=== PATIENT | female | born 1935 | race Caucasian/White ===

== ENCOUNTER 2018-03-13 14:20 | Outpatient (CLI) | payer MEDICARE | END 2018-03-13 14:21 | disposition home or self-care (01) | LOC: BICMAMMO 14:20 | PROVIDERS: ATTEND Internal Medicine | DX: Z12.31 Encounter for screening mammogram for malignant neoplasm of breast (principal); Z85.3 Personal history of malignant neoplasm of breast; Z80.3 Family history of malignant neoplasm of breast | CPT/HCPCS: 77063; 77067 ==

== ENCOUNTER 2019-04-11 14:05 | Outpatient (CLI) | payer MEDICARE ==
--- NOTE | 2019-04-11 14:43 | MMO ---
Bilateral MAMMO Bilat Screen [facility]. CLINICAL HISTORY: Patient is 83 years old and is seen for screening. The patient has the following family history of breast cancer: paternal grandmother, malignant (generic). The patient has a history of malignant (generic) in the right breast at age 67. The patient has a history of left Ultrasound Guided Core Biopsy in January, - benign - Fibroadipose tissue and right Lumpectomy in 2002 - malignant. VIEWS: The views performed were: bilateral craniocaudal with tomosynthesis and bilateral mediolateral oblique with tomosynthesis. FILMS COMPARED: The present examination has been compared to prior imaging studies performed at [facility], [place] on 02/19/2015, 02/24/2016, 03/09/2017 and 03/13/2018. This study has been interpreted with the assistance of computer-aided detection. MAMMOGRAM FINDINGS: The breasts are heterogeneously dense, which could obscure a lesion on mammography. Finding 1: There are stable post operative changes seen in the right breast. Finding 2: There are benign appearing calcifications seen in both breasts. There are no suspicious masses, suspicious calcifications, or new areas of architectural distortion. IMPRESSION: THERE IS NO MAMMOGRAPHIC EVIDENCE OF MALIGNANCY. A ROUTINE FOLLOW-UP MAMMOGRAM IN 1 YEAR IS RECOMMENDED. THE RESULTS OF THIS EXAM WERE SENT TO THE PATIENT. ACR BI-RADS Category 2 - Benign finding MAMMOGRAPHY NOTE: 1. A negative mammogram report should not delay a biopsy if a dominant of clinically suspicious mass is present. 2. Approximately 10% to 15% of breast cancers are not detected by mammography. 3. Adenosis and dense breasts may obscure an underlying neoplasm. Reported by: DAHLIA CARTER MD Electonically Signed: [id number]
== END 2019-04-11 14:06 | disposition home or self-care (01) ==
LOC: BICMAMMO 14:05
PROVIDERS: ATTEND Internal Medicine
DX: Z12.31 Encounter for screening mammogram for malignant neoplasm of breast (principal)
CPT/HCPCS: 77063; 77067

== ENCOUNTER 2019-06-18 11:58 | Inpatient (IN) | payer MEDICARE ==
[2019-06-18 12:26] LABS: #Lymphocytes 0.9 thou/uL (1.20-3.40); #Monocytes 0.5 thou/uL (0.11-0.59); #Neutrophils 3.6 thou/uL (1.40-6.50); %Basophils 0.6 % (0.0-1.0); %Eosinophils 0.9 % (0.0-10.0); %Lymphocytes 17.3 % (21.0-51.0); %Neutrophils 72.2 % (42.0-75.0); Hemoglobin 12.9 g/dL (12.0-16.0); Mean Corpuscular Hemoglobin 30.3 pg (27.0-31.0); Mean Corpuscular Volume 94.8 fL (78.0-98.0); Mean Platelet Volume 8.1 fL (7.4-10.4); Platelet Count 151 thou/uL (130-400); RBC Distribution Width 12.3 % (11.5-14.5); Red Blood Cell (RBC) Count 4.24 mill/uL (4.20-5.40)
[2019-06-18 13:07] LABS: ALT (SGPT) 51 U/L (8-55); AST (SGOT) 45 U/L (5-34); Alkaline Phosphatase 111 U/L (40-110); Anion Gap 13 mmol/L (10-20); BUN (Urea Nitrogen) 13 mg/dL (9.8-20.1); Bilirubin, Total 0.6 mg/dL (0.2-1.2); Calc. Creatinine Clearance 0 mL/min (70-130); Calcium 11.2 mg/dL (7.8-10.44); Carbon Dioxide 29 mmol/L (23-31); Chloride 104 mmol/L (98-107); Estimated GFR-MDRD 73; Globulin 2.6 g/dL (2.4-3.5); Glucose 108 mg/dL (83-110); Potassium 4.7 mmol/L (3.5-5.1); Protein, Total 6.6 g/dL (6.0-8.3); Sodium 141 mmol/L (136-145)
[2019-06-18] MEDS ORDERED: Diltiazem 125 MG/25 ML ONE (13:08)
--- NOTE | 2019-06-18 13:09 | RAD ---
PORTABLE CHEST: Date: 06/18/2019 HISTORY: New onset atrial fibrillation. FINDINGS: Heart size is borderline for portable technique. Lungs are clear of any infiltrative process. Interst itial changes of the lung bases are slightly increased which could represent some subsegmental atelec tasis. IMPRESSION: 1. Borderline heart size. 2. Bibasilar interstitial lung change, probably related to atelectasis. POS: [facility]
[2019-06-18] MEDS ORDERED: Iopamidol-370 76% 500 ML 1 ML ONE (13:56)
[2019-06-18] MEDS ORDERED: Aspirin Chewable 81 MG TAB ONE (15:01)
[2019-06-18] MEDS ORDERED: Enoxaparin Sodium 100 MG/ML SYRINGE ONE (15:01)
--- NOTE | 2019-06-18 15:12 | CT ---
CT ANGIO OF CHEST PERFORMED WITH IV CONTRAST ENHANCEMENT WITH 3D RECONSTRUCTIONS: Date: 06/18/2019 HISTORY: Shortness of breath. New onset of atrial fibrillation. FINDINGS: There are bibasilar more interstitial changes seen, more compatible with atelectasis than infiltrate. Small bilateral effusions are seen. No pulmonary nodules identified other than some areas of nodular ity along the minor fissure which appear to represent small intrafissural lymph nodes. The thoracic aorta is normal in caliber. There is good pulmonary artery opacification and no CT evide nce for pulmonary embolus. Visualized liver parenchyma shows no focal findings. The spleen is not entirely included on this exam , but appears to be borderline in size. A hypodensity partially visualized in the left kidney is most likely a cyst. IMPRESSION: 1. Bibasilar lung changes, more suggestive of atelectasis than infiltrate. There are small bilateral pleural effusions noted. 2. No CT evidence for pulmonary embolus. POS: [facility]
[2019-06-18 16:00] LABS: Troponin I Less than 0.010 ng/mL (< 0.028)
[2019-06-18] MEDS ORDERED: Ondansetron ODT 4 MG TAB SL PRN (16:28)
[2019-06-18] MEDS ORDERED: Acetaminophen 325 MG TAB PO PRN (16:28)
[2019-06-18] MEDS ORDERED: Ondansetron PF 4 MG/2 ML Vial IVP PRN (16:28)
[2019-06-18] MEDS ORDERED: Senokot S 8.6-50 MG TAB PO PRN (16:54)
[2019-06-18 17:07] VITALS: BMI 33.5
[2019-06-18 18:02] LABS: Bacteria/HPF None Seen HPF (None Seen); Bilirubin Negative (Negative); Blood, Urine Negative (Negative); Clarity Clear (Clear); Glucose, Urine (Dipstick) Normal (Negative); Leukocyte 25 Leu/uL (Negative); Nitrite 2+ (Negative); Protein, Urine (Dipstick) Negative (Neg-Trace); RBC/HPF 0-3 HPF (0-3); Squamous Epithelial 0-3 HPF (0-3); Urobilinogen Normal mg/dL (Less than 2); WBC/HPF None Seen HPF (0-3)
[2019-06-18 18:31] LABS: Troponin I Less than 0.010 ng/mL (< 0.028)
[2019-06-18] MEDS ORDERED: Atenolol 50 MG TAB PO SCH (19:00)
[2019-06-18] MEDS ORDERED: Heparin 25,000 units/D5W 500 ML IVPB SCH (19:15)
[2019-06-18] MEDS ORDERED: Heparin 10,000 UNITS/ 10 ML VIAL SLOW IVP SCH (19:15)
[2019-06-18 19:18] LABS: Platelet Count 140 thou/uL (130-400)
--- NOTE | 2019-06-18 19:18 | PDOC.HHP ---
Hospitalist HPI - History of Present Illness shortness of breath when moving and swelling History of Present Illness: 84yo F w/ MHx of pulmonary embolism, HTN, hypothyroidism, and hyperparathyroidism s/p parathyroidectomy (3/4 glands) presents for nausea over the past week. Started suddenly, no vomiting, and associated with progressively worsening lower extremity swelling. Has never had this happen to her before, and as swelling got worse decided to come to the ED. Denies fever, fatigue, chest pain, palpitations, dyspnea, abdominal pain, diarrhea, heat intolerance, generalized weakness, focal weakness, dysarthria, dysphagia. ED Course: In the ED, was found to have atrial fibrillation with RVR, so was admitted to the telemetry floor Hospitalist ROS - Review of Systems Constitutional: denies: fever, chills, sweats, weakness, malaise, other Eyes: denies: pain, vision change, conjunctivae inflammation, eyelid inflammation, redness, other ENT: denies: ear pain, ear discharge, nose pain, nose discharge, nose congestion , mouth pain, mouth swelling, throat pain, throat swelling, other Respiratory: denies: cough, dry, shortness of breath, hemoptysis, SOB with excertion, pleuritic pain, sputum, wheezing, other Cardiovascular: reports: edema. denies: chest pain, palpitations, orthopnea, paroxysmal noc. dyspnea, light headedness, other Gastrointestinal: reports: nausea. denies: vomiting, abdominal pain, diarrhea, constipation, melena, hematochezia, other Genitourinary: denies: dysuria, frequency, incontinence, hematuria, retention, other Musculoskeletal: denies: neck pain, shoulder pain, arm pain, back pain, hand pain, leg pain, foot pain, other Skin: denies: rash, lesions, clarence, bruising, other Neurological: denies: weakness, numbness, incoordination, change in speech, confusion, seizures, other Hospitalist History - Past Medical History Cardiac: reports: HTN. denies: CAD, CHF, [place] Pulmonary: denies: CVA/TIA/stroke, congestive heart failure, heart attack, lung disease FINANCIAL REP: denies: CVA, Seizure, TIA Heme/Onc: denies: Anemia NOS Hepatobiliary: reports: no pertinent history Psych: denies: Anxiety, Addictions, Panic Endocrine: reports: Hypothyroidism, Hyperparathyroidism. denies: Diabetes, Hyperthyroidism - Past Surgical History Past Surgical History: reports: Other (parathyroidectomy) - Family History Family History: reports: hypertension. denies: cardiac disorder, diabetes mellitus - Social History Smoking Status: Never smoker Alcohol: reports: Occassional Drugs: reports: none Living Situation: With Family Activity level: independent ambulation - Exam General Appearance: NAD, awake alert General - other findings: emaciated Eye: PERRL, anicteric sclera ENT: normocephalic atraumatic, moist mucosa Neck: supple, symmetric, no JVD Heart: irregular. negative: no murmur, no gallops Heart - other findings: irregularly irregular; attenuated heart sounds Respiratory: no wheezes, no ronchi, normal chest expansion, no tachypnea Respiratory - other findings: mild inspiratory crackles in lower portillo; satting 92 on RA Gastrointestinal: soft, non-tender, non-distended, normal bowel sounds, no palpable masses, no hepatomegaly, no splenomegaly, no bruit Extremities: 2+ LE edema Extremities - other findings: to knee level, b/l Skin: no lesions Neurological: cranial nerve grossly intact, normal sensation to touch, no weakness, no focal deficits. negative: facial droop, hemiplegia, speech deficit , vision deficit Musculoskeletal: normal tone, normal strength. negative: generalized weakness Psychiatric: normal affect, normal behavior, A&O x 3 Hospitalist Results - Labs Result Diagrams: 06/18/19 19:13 06/18/19 12:16 Lab results: WBC 5.0 thou/uL (4.8-10.8) 06/18/19 12:16 Hgb 12.9 g/dL (12.0-16.0) 06/18/19 12:16 Hct 40.2 % (36.0-47.0) 06/18/19 12:16 MCV 94.8 fL (78.0-98.0) 06/18/19 12:16 Plt Count 151 thou/uL (130-400) 06/18/19 12:16 Neutrophils % 72.2 % (42.0-75.0) 06/18/19 12:16 Sodium 141 mmol/L (136-145) 06/18/19 12:16 Potassium 4.7 mmol/L (3.5-5.1) 06/18/19 12:16 Chloride 104 mmol/L (98-107) 06/18/19 12:16 Carbon Dioxide 29 mmol/L (23-31) 06/18/19 12:16 BUN 13 mg/dL (9.8-20.1) 06/18/19 12:16 Creatinine 0.76 mg/dL (0.6-1.1) 06/18/19 12:16 Glucose 108 mg/dL (83-110) 06/18/19 12:16 Calcium 11.2 mg/dL (7.8-10.44) H 06/18/19 12:16 Total Bilirubin 0.6 mg/dL (0.2-1.2) 06/18/19 12:16 AST 45 U/L (5-34) H 06/18/19 12:16 ALT 51 U/L (8-55) 06/18/19 12:16 Alkaline Phosphatase 111 U/L (40-110) H 06/18/19 12:16 Troponin I Less than 0.010 ng/mL (< 0.028) 06/18/19 17:56 B-Natriuretic Peptide 487.0 pg/mL (0-100) H 06/18/19 12:10 Serum Total Protein 6.6 g/dL (6.0-8.3) 06/18/19 12:16 Albumin 4.0 g/dL (3.4-4.8) 06/18/19 12:16 Urine Ketones Negative mg/dL (Negative) 06/18/19 17:30 Urine Blood Negative (Negative) 06/18/19 17:30 Urine Nitrite 2+ (Negative) A 06/18/19 17:30 Ur Leukocyte Esterase 25 Vlad/uL (Negative) 06/18/19 17:30 Urine RBC 0-3 HPF (0-3) 06/18/19 17:30 Urine WBC None Seen HPF (0-3) 06/18/19 17:30 Ur Squamous Epith Cells 0-3 HPF (0-3) 06/18/19 17:30 Urine Bacteria None Seen HPF (None Seen) 06/18/19 17:30 - EKG Interpretation EKG: atrial fibrillation with RVR 90s-110s; anteroseptal infarct; no signs of acute ischemia - Radiology Interpretation Chest x-ray Status: image reviewed by fl Hospitalist H&P A/P - Problem (1) Atrial fibrillation, new onset Code(s): I48.91 - UNSPECIFIED ATRIAL FIBRILLATION Status: Acute (2) New onset of congestive heart failure Code(s): I50.9 - HEART FAILURE, UNSPECIFIED Status: Acute (3) Hypertension Code(s): I10 - ESSENTIAL (PRIMARY) HYPERTENSION Status: Acute (4) Hyperparathyroidism Code(s): E21.3 - HYPERPARATHYROIDISM, UNSPECIFIED Status: Acute - Plan Plan: * HD stable * chadsvasc score 7; started heparin drip; workup TSH, infectious pending * EKG showing old anteroseptal infarct, will repeat EKG; trop -ve x 2 * lasix started; echo pending, cardiology consulted * rate currently 90-110s. patient on home atenolol which was restarted; also started short acting cardizem with holding parameters * * Calcium 11.2; likely chronic and mild so unlikely to result in ischemia; cannot use fluids considering volume overloaded; lasix may reduce calcium levels ; PTHi ordered * * dispo/code * full code * GI prophylaxis not indicated * DVT PPX: on heparin drip
[2019-06-18] MEDS ORDERED: Furosemide 20 MG TAB PO SCH (19:30)
[2019-06-18] MEDS ORDERED: rOPINIRole HCl 0.25 MG TAB PO SCH (21:00)
[2019-06-18] MEDS ORDERED: Aspirin Chewable 81 MG TAB PO SCH (21:00)
[2019-06-18] MEDS ORDERED: Atorvastatin Calcium 40 MG TAB PO SCH (21:00)
[2019-06-18] MEDS ORDERED: PARICALCITOL PO SCH (21:00)
[2019-06-19 04:57] LABS: #Eosinphils 0.1 thou/uL (0.0-0.7); #Monocytes 0.4 thou/uL (0.11-0.59); #Neutrophils 2.2 thou/uL (1.40-6.50); %Basophils 0.6 % (0.0-1.0); %Eosinophils 3.1 % (0.0-10.0); %Lymphocytes 27.2 % (21.0-51.0); %Monocytes 10.6 % (0.0-10.0); %Neutrophils 58.5 % (42.0-75.0); Hemoglobin 12.2 g/dL (12.0-16.0); Mean Corpuscular HGB CONC 32.7 g/dL (32.0-36.0); Mean Corpuscular Volume 94.9 fL (78.0-98.0); Mean Platelet Volume 8.2 fL (7.4-10.4); Platelet Count 151 thou/uL (130-400); RBC Distribution Width 12.3 % (11.5-14.5); Red Blood Cell (RBC) Count 3.93 mill/uL (4.20-5.40); White Blood Cell (WBC) Count 3.7 thou/uL (4.8-10.8)
[2019-06-19 05:26] LABS: Anion Gap 11 mmol/L (10-20); BUN (Urea Nitrogen) 12 mg/dL (9.8-20.1); Calc. Creatinine Clearance 85 mL/min (70-130); Calcium 10.2 mg/dL (7.8-10.44); Carbon Dioxide 29 mmol/L (23-31); Chloride 103 mmol/L (98-107); Estimated GFR-MDRD 71; Glucose 96 mg/dL (83-110); Sodium 139 mmol/L (136-145)
[2019-06-19] MEDS: Furosemide 20 MG TAB PO SCH ×2 (08:04→13:46)
[2019-06-19] MEDS ORDERED: Enoxaparin Sodium 100 MG/ML SYRINGE SC SCH (09:00)
[2019-06-19] MEDS ORDERED: Atenolol 50 MG TAB PO SCH (09:00)
[2019-06-19] MEDS ORDERED: Terazosin HCl 5 MG CAP PO SCH (09:00)
[2019-06-19] MEDS ORDERED: CRANBERRY 400 MG PO SCH (09:00)
[2019-06-19] MEDS ORDERED: Amlodipine 10 MG TAB PO SCH (09:00)
[2019-06-19] MEDS ORDERED: Lisinopril 20 MG TAB PO SCH (09:00)
--- NOTE | 2019-06-19 11:53 | CON ---
DATE OF CONSULTATION: 06/19/2019 This is a Cardiology, seen with Dr. Damon. HISTORY OF PRESENT ILLNESS: This is an 84-year-old female with past medical history of hypertension, hyperlipidemia, DVT, hyperparathyroidism, and frequent UTIs, presents for shortness of breath that has been worsening over the past week. The patient states yesterday she woke up and was very short of breath. The patient has a history of pulmonary embolus in the past and was worried that this could have happened again and so she presented to the ER. The patient denied any chest pain or palpitation. She reports chronic edema in her bilateral lower extremities. She also reports that she had nausea for about the past 10 days and worsening. She also reported she woke up yesterday with cough. ALLERGIES: NO KNOWN DRUG ALLERGIES. MEDICATIONS: 1. Cranberry 400 mg p.o. daily. 2. Aspirin 81 mg p.o. at bedtime. 3. Terazosin 15 mg p.o. daily. 4. Atorvastatin 40 mg p.o. at bedtime. 5. Ropinirole one tablet p.o. at bedtime. 6. Paricalcitol 4 mcg p.o. at bedtime. 7. Lisinopril 40 mg p.o. daily. 8. Atenolol 100 mg p.o. daily. 9. Norvasc 10 mg p.o. daily. PAST MEDICAL HISTORY: Pulmonary embolus after bilateral knee surgery; hypertension; hyperlipidemia; hyperparathyroidism, status post parathyroidectomy 3 to 4 lobes; frequent urinary tract infections; history of right-sided breast cancer status post chemo and radiation lumpectomy. PAST SURGICAL HISTORY: Right arm surgery x4 due to osteomyelitis, parathyroidectomy, cholecystectomy, left ankle surgery, bilateral knee replacements, and right-sided lumpectomy due to breast cancer. SOCIAL HISTORY: The patient denies tobacco use. Reports alcohol use about once per week gin and tonic, denies drug use. The patient lives with her family. She is . REVIEW OF SYSTEMS: The patient reports chronic constipation. REVIEW OF SYSTEMS: Otherwise negative except as listed in HPI. PHYSICAL EXAMINATION: VITAL SIGNS: Temperature 98.9, pulse 76, respirations 16, O2 saturation 92% on 2 L by nasal cannula, and blood pressure 122/78. GENERAL: This is a well-appearing elderly female, sitting up in bed, alert and talkative, interactive, making good eye contact. HEENT: Head; normocephalic and atraumatic. Eyes; PERRLA. Extraocular motions intact. NECK: Supple. No lymphadenopathy. Trachea midline. HEART: Irregular rate and rhythm. No murmurs, rubs, or gallops appreciated. LUNGS: Bilaterally clear to auscultation. ABDOMEN: Soft and nontender with positive bowel sounds. EXTREMITIES: Radial pulses intact bilaterally. Posterior tibial pulses intact bilaterally. 1+ pitting edema in bilateral lower extremities, left greater than the right. NEUROLOGIC: Strength 5/5 in upper and lower extremities. Cranial nerves 2 through 12 grossly intact. PSYCHIATRIC: Alert and oriented to person, place, time, and situation. LABORATORY DATA: White blood cells 2.7. Hemoglobin 12.2. Platelets 151. D-dimer elevated at 3.34. PTT 30.5. Sodium 139, potassium 4.0, chloride 103, carbon dioxide 29, BUN 12, creatinine 0.77, GFR 71. Calcium 10.2. Magnesium 2.0. AST is elevated at 45. Alkaline phosphatase is elevated at 111. Troponins are less than 0.01 x3. BNP 487. TSH of 2.7. PTH is elevated at 208.2. Urinalysis shows 2+ nitrites with negative bacteria and no white blood cells, leukocyte esterase is 25. IMAGING: EKG shows atrial fibrillation at a rate of 108 beats per minute. Low voltage. Chest x-ray shows borderline heart size. Bibasilar interstitial lung change probably related to atelectasis. CTA of the chest shows small bilateral pleural effusions and no CT evidence of pulmonary embolus. ASSESSMENT AND PLAN: 1. Atrial fibrillation with RVR. New onset. The patient given diltiazem in the ER as well as Lovenox 1 mg/kg and is rate controlled. Echocardiogram showed EF of 50-55% and dilated left atrium to 5.28 cm. The patient will need to be started on long-term anticoagulation, plan to start eliquis 5 mg BID. We will also adjust her medicines to achieve rate control, start Diltiazem extended release 180 mg daily. Follow up with Dr. Damon in 2-4 weeks. Discuss cardioversion in 4-6 weeks. Patient is stable for discharge from cardiology perspective. 2. Elevated BNP. This may be secondary to atrial fibrillation. Echo shows EF 50-55%. 3. Hypercalcemia was mild and improved with Lasix. This Cardiology consult discussed in detail with Dr. Damon. Job ID: [id number] MTDD
[2019-06-19 12:36] VITALS: BP 118/68; TEMP 97.8
[2019-06-19] MEDS ORDERED: Flecainide 50 MG TAB PO SCH ×2 (13:00→22:00)
--- NOTE | 2019-06-20 10:59 | CON ---
DATE OF CONSULTATION: ADDENDUM: Cardiology on Susu Cornejo that was performed by family practitioner resident, Dr. Newberry. We have discussed this patient in detail. We have examined the patient together and I would agree with the assessment and plan. This is an 84-year-old female with newly diagnosed atrial fibrillation. She has a history of acute pulmonary embolus in the past. She denies any chest pain. She remains relatively active. There is no indication that she has had a myocardial infarction. Her enzymes are negative. Her EKG did not show any evidence of ischemia. She presented to the hospital after stating that she had become short of breath over the last week or so. She had more shortness of breath, unusual. She always has some shortness of breath because due to her history of PEs in the past perhaps, but she denied any chest pain. Her EKG does show atrial fibrillation with decreased R-wave progression in V1 through V4, but the echocardiogram shows ejection fraction of 50% to 55%. She does have a dilated left atrium of 5.2 cm in diameter, which may make it somewhat more difficult for her to maintain sinus rhythm, even if she were candidate for cardioversion. Her BNP also was slightly elevated, which may be due to atrial fibrillation and dilatation of the left atrium, but otherwise no significant abnormalities. Her thyroid function also was normal. At some point in time, she will need to undergo stress testing to rule out evidence of underlying coronary artery disease. She does have a history of hypercholesterolemia as well as hypertension, but denies any previous cardiac history. For her past medical history, social history, family history, review of systems, allergies, medications, and physical examination, please refer to the notes dictated by the resident. On my examination, her chest was clear to auscultation. Cardiovascular exam revealed an irregular rhythm. She had no lower extremity edema. Positive bowel sounds are present. Neurologically, she appears to be fully intact. IMPRESSION: Newly diagnosed atrial fibrillation of uncertain duration, but certainly appears that it may have started within the last 1 to 2 weeks when she became more short of breath and also noticed that she had an irregularly erratic heart rate. At this time, she has been under relatively good rate control with diltiazem and since she has a normal ejection fraction by echocardiogram, we can continue this medication. I will be more than happy to see her back in the office and we can discuss possible cardioversion in the next 4 to 6 weeks. I will see her back in the office in the next 2 to 4 weeks after discharge and we can continue medications to see whether or not she is under good rate control. If not, we will switch this to maybe a beta trish rather than a calcium trish. We will also start her on Eliquis 5 mg b.i.d. due to the atrial fibrillation to decrease the risk of embolic phenomenon. She had been on Xarelto in the past, has not taken medicines for several years now. She was on Xarelto for about six weeks after she had a pulmonary embolus, which was associated when having knee surgery. Otherwise, she appears to be relatively stable person and I would agree with the overall assessment and plan otherwise. Job ID: [id number]
--- NOTE | 2019-06-20 11:31 | DIS ---
DATE OF ADMISSION: 06/18/2019 DATE OF DISCHARGE: 06/19/2019 HOSPITAL COURSE: Ms. Cornejo is an 84-year-old female with a medical history of pulmonary embolism, hypertension, hypothyroidism, and hyperparathyroidism, status post parathyroidectomy of 3 out of the 4 glands, who presented for nausea over the past week. In the ED, she was found to have atrial fibrillation with RVR, so she was admitted to the telemetry floor. She was started on rate control as well as anticoagulation considering her high CHADS-VASc score of 7. Cardiology was consulted, and per their recommendations, we will continue to control rate with diltiazem and atenolol pending possible cardioversion in the next 4 to 6 weeks with Cardiology. The patient was discharged home hemodynamically stable with no complaints. Vitals were unremarkable, and heart rate was between 80s to 90s. PHYSICAL EXAMINATION: GENERAL: She is in no apparent distress. Awake and alert x3. HEENT: She is normocephalic and atraumatic with moist mucosa. HEART: Irregular rhythm with well-controlled rate. No murmur. No gallops. RESPIRATORY: No wheezes. No rhonchi. Normal chest expansion. No tachypnea. Mild inspiratory crackles in lower portillo. GASTROINTESTINAL: Soft, nontender, and nondistended. Normal bowel sounds. No palpable masses. EXTREMITIES: 2+ lower extremity edema up to knee level bilateral. NEUROLOGIC: Cranial nerves grossly intact. Normal sensation to touch. No weakness. No focal deficits. No facial droop, hemiplegia, speech deficit, or vision deficit. MUSCULOSKELETAL: Normal tone and strength. PSYCHIATRIC: Normal affect. Normal behavior. Alert and oriented x3. ASSESSMENT AND PLAN: Ms. Cornejo is an 84-year-old female with a medical history of pulmonary embolism, hypertension, hypothyroidism, and hyperparathyroidism, who presented with new onset atrial fibrillation with rapid ventricular response. The patient was started on Cardizem in addition to her beta-trish, and rate was well controlled between 70s to 80s. Prior to discharge, Cardiology was consulted and agreed with rate control as well as anticoagulation pending possible cardioversion as an outpatient within 4 to 6 weeks. Job ID: [id number]
--- NOTE | 2019-06-21 00:03 | PQF ---
MERYLJENIFFER MIRANDA BRUCE MENESES, AKIRA [id number] CLINICAL DOCUMENTATION CLARIFICATION FORM: POST DISCHARGE Addendum to original discharge summary date: ____ Late entry note date: __ DATE:06/20/2019 ATTN:AKIRA MENESES Please exercise your independent, professional judgment in responding to the clarification form. Clinical indicators are provided on the bottom of this form for your review Please check appropriate box(s): HEART FAILURE: A. TYPE: [ ] Systolic / HFrEF [ ] Diastolic / HFpEF [ ] Combined Systolic / Diastolic B. ACUITY [ ] Acute [ ] Acute on Chronic [ ] Chronic [ ] Other diagnosis [ ] Unable to determine For continuity of documentation, please document condition throughout progress notes and discharge summary. Thank You. CLINICAL INDICATORS - SIGNS / SYMPTOMS / LABS Shortness of breath -Documented in H&P on 06/18 by Raquel Tabares [id number] in H&P on 06/18 by Raquel Tabares New onset of congestive heart failure-Documented in H&P on 06/18 by Raquel Tabares Atrial fibrillation -Documented in H&P on 06/18 by Raquel Tabares EF-50-55%-Documented in ECHO RISKS: HTN-Documented in H&P on 06/18 by Raquel Tabares TREATMENTS: Echocardiogram -Documented in 06/19 Lasix 20 mg PO-Documented in Medication snapshot [employer] Win[employer] (This form is maintained as a part of the permanent medical record) 2014 [employer]. All Rights Reserved [email or web address]
== END 2019-06-19 15:00 | disposition home or self-care (01) | DRG 310 ==
LOC: ERS 11:58 → 2SE 15:06
PROVIDERS: ADMIT Emergency Medicine; ATTEND Emergency Medicine
DX: I48.91 Unspecified atrial fibrillation (principal); I11.0 Hypertensive heart disease with heart failure; E03.9 Hypothyroidism, unspecified; E21.3 Hyperparathyroidism, unspecified; I50.9 Heart failure, unspecified; E78.5 Hyperlipidemia, unspecified; Z87.440 Personal history of urinary (tract) infections; Z85.3 Personal history of malignant neoplasm of breast; Z86.711 Personal history of pulmonary embolism; Z90.49 Acquired absence of other specified parts of digestive tract; Z98.890 Other specified postprocedural states; Z86.718 Personal history of other venous thrombosis and embolism; Z96.653 Presence of artificial knee joint, bilateral; E83.52 Hypercalcemia
CPT/HCPCS: 36415; 71045; 71275; 80048; 80053; 81001; 83735; 83880; 83970; 84443; 84484; 85025; 85379; 85730; 93005; 93010; 93306; 96374; 96375; J1644; J1650; Q9967

== ENCOUNTER 2020-03-03 09:17 | Outpatient (CLI) | payer MEDICARE ==
--- NOTE | 2020-03-03 11:30 | BD ---
BONE DENSITOMETRY USING DEXA: Date: 03/03/2020 HISTORY: Postmenopausal screening for osteoporosis. FINDINGS: Right Hip: BMD (g/cm2) Neck 0.644 T-Score: -1.8 Z-Score: 0.7 Total 0.757 T-Score: -1.5 Z-Score: 0.8 Left Hip: Neck 0.719 T-Score: -1.2 Z-Score: 1.3 Total 0.775 T-Score: -1.4 Z-Score: 1.0 The 10 year fracture risk for a major osteoporotic fracture is 21% and for a hip fracture is 5.7%. IMPRESSION: Osteopenia. POS: [facility]
== END 2020-03-03 09:18 | disposition home or self-care (01) ==
LOC: BICMAMMO 09:17
PROVIDERS: ATTEND Internal Medicine
DX: Z13.820 Encounter for screening for osteoporosis (principal); M85.89 Other specified disorders of bone density and structure, multiple sites; Z78.0 Asymptomatic menopausal state
CPT/HCPCS: 77080

== ENCOUNTER 2020-07-25 17:30 | Emergency (ER) | payer MEDICARE ==
[2020-07-25 18:08] LABS: #Eosinphils 0.2 thou/uL (0.0-0.7); #Lymphocytes 1.4 thou/uL (1.20-3.40); #Monocytes 0.7 thou/uL (0.11-0.59); #Neutrophils 3.9 thou/uL (1.40-6.50); %Basophils 0.3 % (0.0-1.0); %Eosinophils 2.6 % (0.0-10.0); %Lymphocytes 22.3 % (21.0-51.0); %Monocytes 11.1 % (0.0-10.0); %Neutrophils 63.6 % (42.0-75.0); Mean Corpuscular HGB CONC 33.5 g/dL (32.0-36.0); Mean Corpuscular Hemoglobin 31.2 pg (27.0-31.0); Mean Corpuscular Volume 93.3 fL (78.0-98.0); Mean Platelet Volume 7.2 fL (7.4-10.4); Platelet Count 209 thou/uL (130-400); RBC Distribution Width 11.4 % (11.5-14.5); Red Blood Cell (RBC) Count 4.47 mill/uL (4.20-5.40); White Blood Cell (WBC) Count 6.2 thou/uL (4.8-10.8)
[2020-07-25 18:27] LABS: ALT (SGPT) 15 U/L (8-55); AST (SGOT) 21 U/L (5-34); Alkaline Phosphatase 84 U/L (40-110); Anion Gap 12 mmol/L (10-20); BUN (Urea Nitrogen) 22 mg/dL (9.8-20.1); Bilirubin, Total 0.4 mg/dL (0.2-1.2); Calc. Creatinine Clearance 0 mL/min (70-130); Calcium 10.6 mg/dL (7.8-10.44); Carbon Dioxide 29 mmol/L (23-31); Chloride 102 mmol/L (98-107); Globulin 3.6 g/dL (2.4-3.5); Glucose 111 mg/dL (83-110); Potassium 3.9 mmol/L (3.5-5.1); Protein, Total 7.6 g/dL (5.8-8.1); Sodium 139 mmol/L (136-145)
[2020-07-25 19:40] LABS: Clarity Cloudy (Clear); Specific Gravity, Urine 1.008 (1.002-1.036); pH, Urine 6.6 (5.0-9.0)
[2020-07-25 19:41] LABS: Bilirubin Unable to Interpret (Negative); Glucose, Urine (Dipstick) Unable to Interpret mg/dL (Negative); Ketone, Urine Unable to Interpret mg/dL (Negative); Leukocyte Unable to Interpret Leu/uL (Negative); Nitrite Unable to Interpret (Negative); Protein, Urine (Dipstick) Unable to Interpret mg/dL (Neg-Trace); Urobilinogen UNABLE TO INTERPRET mg/dL (Less than 2)
[2020-07-25 19:53] LABS: Blood, Urine Unable to Interpret (Negative); RBC/HPF Greater than 50 HPF (0-3); Squamous Epithelial 0-3 HPF (0-3); WBC/HPF 0-3 HPF (0-3)
[2020-07-25 19:54] LABS: Bacteria/HPF Rare-Few HPF (None Seen)
== END 2020-07-25 21:05 | disposition home or self-care (01) ==
LOC: ERS 17:30
DX: R31.0 Gross hematuria (principal); E03.9 Hypothyroidism, unspecified; E78.5 Hyperlipidemia, unspecified; I10 Essential (primary) hypertension; I48.91 Unspecified atrial fibrillation; Z79.899 Other long term (current) drug therapy
CPT/HCPCS: 36415; 74176; 80053; 81003; 81015; 85025

== ENCOUNTER 2020-09-16 20:15 | Inpatient (IN) | payer MEDICARE ==
[~2020-09-16 20:15] MED LIST: Iopamidol-370 76% 500 ML 1 ML ONE
[2020-09-16 21:01] LABS: #Eosinphils 0.1 thou/uL (0.0-0.7); #Lymphocytes 1.1 thou/uL (1.20-3.40); #Monocytes 0.7 thou/uL (0.11-0.59); #Neutrophils 4.2 thou/uL (1.40-6.50); %Basophils 0.6 % (0.0-1.0); %Eosinophils 1.4 % (0.0-10.0); %Lymphocytes 17.4 % (21.0-51.0); %Neutrophils 68.6 % (42.0-75.0); Hemoglobin 9.7 g/dL (12.0-16.0); Mean Corpuscular HGB CONC 31.8 g/dL (32.0-36.0); Mean Corpuscular Hemoglobin 27.3 pg (27.0-31.0); Mean Corpuscular Volume 85.9 fL (78.0-98.0); Mean Platelet Volume 6.8 fL (7.4-10.4); Platelet Count 233 thou/uL (130-400); RBC Distribution Width 12.9 % (11.5-14.5); Red Blood Cell (RBC) Count 3.55 mill/uL (4.20-5.40); White Blood Cell (WBC) Count 6.1 thou/uL (4.8-10.8)
[2020-09-16 21:22] LABS: INR-International Normal Ratio 1.3; PTT 30.6 sec (22.9-36.1); Prothrombin Time 16.4 sec (12.0-14.7)
[2020-09-16 21:24] LABS: ALT (SGPT) 10 U/L (8-55); AST (SGOT) 15 U/L (5-34); Albumin 3.5 g/dL (3.4-4.8); Alkaline Phosphatase 76 U/L (40-110); Anion Gap 14 mmol/L (10-20); BUN (Urea Nitrogen) 20 mg/dL (9.8-20.1); Bilirubin, Total 0.3 mg/dL (0.2-1.2); Calc. Creatinine Clearance 0 mL/min (70-130); Calcium 10.8 mg/dL (7.8-10.44); Carbon Dioxide 27 mmol/L (23-31); Chloride 101 mmol/L (98-107); Globulin 3.2 g/dL (2.4-3.5); Glucose 125 mg/dL (83-110); Lipase 47 U/L (8-78); Protein, Total 6.7 g/dL (5.8-8.1); Sodium 138 mmol/L (136-145)
[2020-09-16 21:51] LABS: Bilirubin Negative (Negative); Blood, Urine Negative (Negative); Clarity Clear (Clear); Glucose, Urine (Dipstick) Normal (Negative); Ketone, Urine Negative (Negative); Leukocyte Negative Leu/uL (Negative); Nitrite Negative (Negative); Protein, Urine (Dipstick) Negative (Neg-Trace); Specific Gravity, Urine 1.013 (1.002-1.036); Urobilinogen Normal mg/dL (Less than 2); pH, Urine 6.5 (5.0-9.0)
[2020-09-16] MEDS ORDERED: Pantoprazole 80 MG in Sodium Chloride 0.9% 100 ML IVPB SCH (23:59)
[2020-09-17 02:44] VITALS: BMI 29.9
[2020-09-17 04:31] LABS: #Basophils 0.1 thou/uL (0.0-0.2); #Eosinphils 0.1 thou/uL (0.0-0.7); #Lymphocytes 1.8 thou/uL (1.20-3.40); #Neutrophils 4.6 thou/uL (1.40-6.50); %Basophils 0.8 % (0.0-1.0); %Eosinophils 1.3 % (0.0-10.0); %Lymphocytes 23.6 % (21.0-51.0); %Monocytes 12.7 % (0.0-10.0); %Neutrophils 61.5 % (42.0-75.0); Hemoglobin 10.2 g/dL (12.0-16.0); Mean Corpuscular HGB CONC 32.2 g/dL (32.0-36.0); Mean Corpuscular Hemoglobin 27.7 pg (27.0-31.0); Mean Corpuscular Volume 86.1 fL (78.0-98.0); Platelet Count 253 thou/uL (130-400); RBC Distribution Width 12.8 % (11.5-14.5); Red Blood Cell (RBC) Count 3.68 mill/uL (4.20-5.40); White Blood Cell (WBC) Count 7.5 thou/uL (4.8-10.8)
[2020-09-17 05:49] LABS: SARS-CoV-2 NAA Rapid Test Not Detected (NotDetected)
[2020-09-17] MEDS ORDERED: Pantoprazole 80 MG in Sodium Chloride 0.9% 100 ML IVP SCH (10:15)
[2020-09-17 11:00] LABS: Hemoglobin 9.2 g/dL (12.0-16.0)
[2020-09-17 16:18] LABS: Hemoglobin 9.6 g/dL (12.0-16.0)
[2020-09-17] MEDS ORDERED: GoLYTELY 4,000 ml Bottle PO SCH (17:00)
[2020-09-17] MEDS: rOPINIRole HCl 0.25 MG TAB PO SCH (21:02)
[2020-09-17] MEDS: Magnesium Oxide 400 MG TAB PO SCH (21:02)
[2020-09-17] MEDS: Dronedarone HCl 400 MG TAB PO SCH (21:02)
[2020-09-17] MEDS: Lisinopril 20 MG TAB PO SCH (21:02)
[2020-09-17] MEDS: Pantoprazole 80 MG, Admixture Fee 1 EACH in Sodium Chloride 0.9% 100 ML IVP SCH (23:28)
[2020-09-18] MEDS: Atenolol 50 MG TAB PO SCH (07:47)
[2020-09-18 07:58] LABS: Anion Gap 9 mmol/L (10-20); BUN (Urea Nitrogen) 16 mg/dL (9.8-20.1); Calc. Creatinine Clearance 68 mL/min (70-130); Calcium 10.5 mg/dL (7.8-10.44); Carbon Dioxide 28 mmol/L (23-31); Chloride 108 mmol/L (98-107); Glucose 102 mg/dL (83-110); Potassium 3.9 mmol/L (3.5-5.1); Sodium 141 mmol/L (136-145)
[2020-09-18 08:02] LABS: #Eosinphils 0.1 thou/uL (0.0-0.7); #Lymphocytes 0.8 thou/uL (1.20-3.40); #Monocytes 0.6 thou/uL (0.11-0.59); #Neutrophils 2.8 thou/uL (1.40-6.50); %Basophils 1.1 % (0.0-1.0); %Eosinophils 2.5 % (0.0-10.0); %Lymphocytes 18.5 % (21.0-51.0); %Monocytes 12.8 % (0.0-10.0); %Neutrophils 65.1 % (42.0-75.0); Mean Corpuscular HGB CONC 32.5 g/dL (32.0-36.0); Mean Corpuscular Hemoglobin 28.2 pg (27.0-31.0); Mean Corpuscular Volume 86.7 fL (78.0-98.0); Mean Platelet Volume 7.1 fL (7.4-10.4); Platelet Count 201 thou/uL (130-400); Red Blood Cell (RBC) Count 2.84 mill/uL (4.20-5.40); White Blood Cell (WBC) Count 4.3 thou/uL (4.8-10.8)
[2020-09-18] MEDS: Cholecalciferol 1,000 UNITS (25 MCG) TAB PO SCH (09:00)
[2020-09-18] MEDS: Magnesium Oxide 400 MG TAB PO SCH ×2 (09:00→20:25)
[2020-09-18] MEDS: Dronedarone HCl 400 MG TAB PO SCH ×2 (09:00→20:25)
[2020-09-18] MEDS: Atorvastatin Calcium 20 MG TAB PO SCH (09:00)
[2020-09-18] MEDS: Lisinopril 20 MG TAB PO SCH ×2 (09:00→20:25)
[2020-09-18] MEDS ORDERED: PROPOFOL 200 MG/20 ML VIAL ONE (09:36)
[2020-09-18] MEDS ORDERED: Promethazine HCl 25 MG/ML VIAL IM PRN (09:37)
[2020-09-18] MEDS ORDERED: Ondansetron HCl/PF 4 MG/2 ML Vial IVP PRN (09:37)
[2020-09-18] MEDS ORDERED: Promethazine HCl 25 MG/ML VIAL SLOW IVP PRN (09:37)
[2020-09-18] MEDS: Pantoprazole 80 MG, Admixture Fee 1 EACH in Sodium Chloride 0.9% 100 ML IVP SCH (11:32)
[2020-09-18 15:37] LABS: Hemoglobin 8.2 g/dL (12.0-16.0)
[2020-09-18] MEDS: rOPINIRole HCl 0.25 MG TAB PO SCH (20:25)
[2020-09-18 21:07] LABS: Hemoglobin 8.1 g/dL (12.0-16.0)
[2020-09-19 06:33] LABS: Hemoglobin 8.7 g/dL (12.0-16.0)
[2020-09-19] MEDS: Magnesium Oxide 400 MG TAB PO SCH ×2 (08:34→21:27)
[2020-09-19] MEDS: Atorvastatin Calcium 20 MG TAB PO SCH (08:34)
[2020-09-19] MEDS: Dronedarone HCl 400 MG TAB PO SCH ×2 (08:34→21:24)
[2020-09-19] MEDS: Cholecalciferol 1,000 UNITS (25 MCG) TAB PO SCH (08:34)
[2020-09-19 09:27] LABS: Hemoglobin 8.2 g/dL (12.0-16.0)
[2020-09-19] MEDS: Lisinopril 20 MG TAB PO SCH ×2 (10:19→21:32)
[2020-09-19] MEDS: Atenolol 50 MG TAB PO SCH (10:20)
[2020-09-19 14:27] LABS: Hemoglobin 8.1 g/dL (12.0-16.0)
[2020-09-19 15:46] LABS: Hemoglobin 7.6 g/dL (12.0-16.0)
[2020-09-19] MEDS: rOPINIRole HCl 0.25 MG TAB PO SCH (21:24)
[2020-09-19] MEDS: Estradiol 1 MG TAB PO SCH (21:29)
[2020-09-19 21:45] LABS: Hemoglobin 7.4 g/dL (12.0-16.0)
[2020-09-20] MEDS: Atenolol 50 MG TAB PO SCH (08:11)
[2020-09-20] MEDS: Estradiol 1 MG TAB PO SCH (08:11)
[2020-09-20] MEDS: Lisinopril 20 MG TAB PO SCH (08:11)
[2020-09-20] MEDS: Magnesium Oxide 400 MG TAB PO SCH (08:12)
[2020-09-20] MEDS: Atorvastatin Calcium 20 MG TAB PO SCH (08:13)
[2020-09-20] MEDS: Dronedarone HCl 400 MG TAB PO SCH (08:13)
[2020-09-20] MEDS: Cholecalciferol 1,000 UNITS (25 MCG) TAB PO SCH (08:13)
[2020-09-20 15:38] VITALS: BP 117/68; TEMP 97.8
== END 2020-09-20 15:46 | disposition home or self-care (01) | DRG 813 ==
LOC: ERS 20:15 → ERHOLD 09-17 00:42 → T4-A 09-17 13:53 → OBSVTOIN 09-18 15:37
PROVIDERS: ADMIT Internal Medicine; ATTEND Internal Medicine
PROC: 0DJD8ZZ Inspection of Lower Intestinal Tract, Via Natural or Artificial Opening Endoscopic (ICD-10-PCS; principal; 2020-09-18)
DX: D68.32 Hemorrhagic disorder due to extrinsic circulating anticoagulants (principal); D62 Acute posthemorrhagic anemia; T45.515A Adverse effect of anticoagulants, initial encounter; N95.2 Postmenopausal atrophic vaginitis; K64.8 Other hemorrhoids; K57.30 Diverticulosis of large intestine without perforation or abscess without bleeding; I10 Essential (primary) hypertension; E21.3 Hyperparathyroidism, unspecified; E78.5 Hyperlipidemia, unspecified; Z20.822 Contact with and (suspected) exposure to COVID-19; I48.0 Paroxysmal atrial fibrillation; Z79.01 Long term (current) use of anticoagulants; Z79.899 Other long term (current) drug therapy; Z79.82 Long term (current) use of aspirin; Z85.3 Personal history of malignant neoplasm of breast; Z90.10 Acquired absence of unspecified breast and nipple; Z98.890 Other specified postprocedural states
CPT/HCPCS: 36415; 74177; 76856; 80048; 80053; 81003; 83690; 83735; 85014; 85018; 85025; 85610; 85730; 87086; 96376; C9113; G0378; J2704; J3490; Q9967; U0002; U0005

== ENCOUNTER 2023-06-23 11:48 | Outpatient (CLI) | payer MEDICARE ==
[2023-06-23 12:57] LABS: #Basophils 0.1 10x3/uL (0.0-0.2); #Eosinphils 0.1 10x3/uL (0.0-0.5); #Monocytes 0.7 10x3/uL (0.0-1.1); #Neutrophils 3.8 10x3/uL (1.5-8.4); %Basophils 1.1 % (0.0-2.0); %Eosinophils 1.4 % (0.0-6.0); %Monocytes 12.3 % (0.0-10.0); Hematocrit 43.9 % (34.9-44.5); Hemoglobin 14.2 g/dL (12.0-15.5); Mean Corpuscular HGB CONC 32.3 g/dL (32.0-36.0); Mean Corpuscular Hemoglobin 29.3 pg (27.0-33.0); Mean Corpuscular Volume 90.7 fl (81.6-98.3); Mean Platelet Volume 9.5 fl (7.4-10.4); Platelet Count 219 10x3/uL (150-450); RBC Distribution Width 12.7 % (11.5-14.5); Red Blood Cell (RBC) Count 4.84 10x6/uL (3.90-5.03); White Blood Cell (WBC) Count 5.6 10x3/uL (3.5-10.5)
[2023-06-23 14:19] LABS: Anion Gap 12 mmol/L (10-20); BUN (Urea Nitrogen) 10 mg/dL (9.8-20.1); Calc. Creatinine Clearance 0 mL/min (70-130); Calcium 9.5 mg/dL (7.8-10.44); Carbon Dioxide 28 mmol/L (23-31); Chloride 103 mmol/L (98-107); Estimated GFR 74; Glucose 94 mg/dL (83-110); Sodium 139 mmol/L (136-145)
[2023-06-23 14:23] LABS: INR-International Normal Ratio 1.1; Prothrombin Time 11.6 sec (9.5-12.1)
== END 2023-06-23 11:49 | disposition home or self-care (01) ==
LOC: LABBT 11:48
PROVIDERS: ATTEND Orthopaedic Surgery
DX: Z01.818 Encounter for other preprocedural examination (principal); M16.12 Unilateral primary osteoarthritis, left hip
CPT/HCPCS: 80048; 85025; 85610; 87081; 93005; 93010

== ENCOUNTER 2023-07-05 08:41 | Inpatient (IN) | payer MEDICARE ==
[2023-07-05] MEDS ORDERED: Sodium Chloride 0.9% 100 ML ONE ×2 (09:58→11:13)
[2023-07-05] MEDS ORDERED: Tranexamic Acid 1,000 MG/10 ML VIAL ONE (09:58)
[2023-07-05] MEDS ORDERED: Vancomycin (BATCH) 1.5 GM/300 ML BAG ONE (09:59)
[2023-07-05] MEDS ORDERED: Bupivacaine 0.25% HCL 30 ML VIAL ONE (11:12)
[2023-07-05] MEDS ORDERED: EPINEPHrine 1 MG/ML VIAL ONE (11:12)
[2023-07-05] MEDS ORDERED: CEFAZOLIN 2 GM VIAL ONE (11:12)
[2023-07-05] MEDS ORDERED: PROPOFOL 20 ML ONE (11:43)
[2023-07-05] MEDS ORDERED: Lidocaine 2% PF 5 ML VIAL ONE (11:44)
[2023-07-05] MEDS ORDERED: ePHEDrine Sulfate 50 MG/10 ML VIAL ONE (11:52)
[2023-07-05] MEDS ORDERED: Phenylephrine 10 MG/ML VIAL ONE (12:01)
[2023-07-05] MEDS ORDERED: fentaNYL PF 100 MCG/2 ML SYRINGE ONE ×2 (12:37→14:21)
[2023-07-05] MEDS ORDERED: fentaNYL 50 mcg/mL 1 mL Vial ONE (13:46)
[2023-07-05] MEDS ORDERED: HYDROmorphone 2 MG/ML VIAL ONE (13:50)
[2023-07-05] MEDS ORDERED: Promethazine HCl 25 MG/ML VIAL ONE (14:28)
[2023-07-05] MEDS ORDERED: Zolpidem Tartrate 5 MG TAB PO PRN (17:10)
[2023-07-05] MEDS ORDERED: diphenhydrAMINE 25 MG CAP PO PRN ×2 (17:10→18:30)
[2023-07-05] MEDS ORDERED: Ondansetron PF 4 MG/2 ML Vial IVP PRN ×2 (17:10→18:30)
[2023-07-05] MEDS ORDERED: Promethazine HCl 25 MG/ML VIAL IM PRN ×2 (17:10→18:30)
[2023-07-05] MEDS: Sodium Chloride 0.9% 1,000 ML IV SCH (18:18)
[2023-07-05] MEDS: Acetaminophen 325 MG TAB PO PRN (18:19)
[2023-07-05] MEDS ORDERED: Communication Order-Pharmacy FS SCH (18:30)
[2023-07-05] MEDS ORDERED: Naloxone HCl 0.4 mg/ml Vial IV PRN (18:30)
[2023-07-05] MEDS ORDERED: diphenhydrAMINE 50 MG/ML VIAL IM PRN (18:30)
[2023-07-05] MEDS ORDERED: diphenhydrAMINE 50 MG/ML VIAL IVP PRN (18:30)
[2023-07-05] MEDS: FENTANYL 500 MCG/10 ML VIAL 2,000 MCG in Sodium Chloride 0.9% 60 ML IV PRN (19:22)
[2023-07-05] MEDS: FLU VACC QS2023(65UP)/MF59C/PF 60 MCG/0.5 ML SYRINGE IM ONE (20:48)
[2023-07-05] MEDS: CEFAZOLIN 2 GM in Sodium Chloride 0.9% 100 ML IVPB SCH (20:52)
[2023-07-05] MEDS: Ferrous Gluconate 324 MG TAB PO SCH (20:54)
[2023-07-05] MEDS: Senokot S 8.6-50 MG TAB PO SCH (20:54)
[2023-07-05] MEDS: rOPINIRole HCl 0.25 MG TAB PO SCH (20:54)
[2023-07-05] MEDS: Lisinopril 20 MG TAB PO SCH (21:00)
[2023-07-06 00:48] LABS: #Neutrophils 6.1 thou/uL (1.40-6.50); %Basophils 0.3 % (0.0-1.0); %Eosinophils 0.4 % (0.0-10.0); %Lymphocytes 9.1 % (21.0-51.0); %Neutrophils 76.8 % (42.0-75.0); Hematocrit 37.6 % (36.0-47.0); Mean Corpuscular HGB CONC 31.9 g/dL (32.0-36.0); Mean Corpuscular Hemoglobin 29.7 pg (27.0-31.0); Mean Corpuscular Volume 93.1 fl (78.0-98.0); Mean Platelet Volume 9.2 fL (7.4-10.4); Platelet Count 180 10x3/uL (130-400); RBC Distribution Width 12.8 % (11.5-14.5); Red Blood Cell (RBC) Count 4.04 mill/uL (4.20-5.40)
[2023-07-06 01:08] LABS: ALT (SGPT) 18 U/L (8-55); AST (SGOT) 33 U/L (5-34); Albumin 3.4 g/dL (3.4-4.8); Alkaline Phosphatase 87 U/L (40-110); Anion Gap 13 mmol/L (10-20); BUN (Urea Nitrogen) 12 mg/dL (9.8-20.1); Bilirubin, Total 0.6 mg/dL (0.2-1.2); Calc. Creatinine Clearance 68 mL/min (70-130); Calcium 9.3 mg/dL (7.8-10.44); Carbon Dioxide 26 mmol/L (23-31); Chloride 107 mmol/L (98-107); Estimated GFR 71; Globulin 2.8 g/dL (2.4-3.5); Glucose 129 mg/dL (83-110); Magnesium 2.3 mg/dL (1.6-2.6); Potassium 4.5 mmol/L (3.5-5.1); Protein, Total 6.2 g/dL (5.8-8.1); Sodium 141 mmol/L (136-145)
[2023-07-06 02:01] LABS: Bacteria/HPF 1+ HPF (None Seen); Bilirubin Negative (Negative); Blood, Urine Negative (Negative); CAUTI Indications for Culture Dysuria,urgency,freq; Clarity Turbid (Clear); Glucose, Urine (Dipstick) Normal (Negative); Ketone, Urine Negative (Negative); Leukocyte 500 Leu/uL (Negative); Nitrite Negative (Negative); Protein, Urine (Dipstick) Negative (Neg-Trace); Specific Gravity, Urine 1.014 (1.002-1.036); Urobilinogen Normal mg/dL (Less than 2); WBC/HPF Greater than 50 HPF (0-3)
[2023-07-06 02:02] LABS: Urine Culture Reflex Yes Yes
[2023-07-06 06:39] LABS: Mean Corpuscular HGB CONC 31.6 g/dL (32.0-36.0); Mean Corpuscular Hemoglobin 29.1 pg (27.0-31.0); Mean Platelet Volume 9.8 fL (7.4-10.4); Platelet Count 173 10x3/uL (130-400); Red Blood Cell (RBC) Count 4.13 mill/uL (4.20-5.40); White Blood Cell (WBC) Count 6.9 10x3/uL (4.8-10.8)
[2023-07-06] MEDS: Atenolol 50 MG TAB PO SCH (08:27)
[2023-07-06] MEDS: Atorvastatin Calcium 40 MG TAB PO SCH (08:27)
[2023-07-06] MEDS: Cinacalcet HCl 30 MG TAB PO SCH (08:27)
[2023-07-06] MEDS: Magnesium Oxide 400 MG TAB PO SCH (08:27)
[2023-07-06] MEDS: Amlodipine 10 MG TAB PO SCH (08:27)
[2023-07-06] MEDS: Apixaban 5 MG TAB PO SCH (08:27)
[2023-07-06] MEDS: Cholecalciferol 1,000 UNITS (25 MCG) TAB PO SCH (08:27)
[2023-07-06] MEDS: Dronedarone HCl 400 MG TAB PO SCH (08:27)
[2023-07-06] MEDS: Multivitamin W/ Minerals 1 TAB PO SCH (08:28)
[2023-07-06 15:40] LABS: Bilirubin Negative (Negative); Blood, Urine Negative (Negative); CAUTI Indications for Culture Dysuria,urgency,freq; Glucose, Urine (Dipstick) Normal (Negative); Ketone, Urine Negative (Negative); Leukocyte 250 Leu/uL (Negative); Nitrite Negative (Negative); Protein, Urine (Dipstick) Negative (Neg-Trace); RBC/HPF 0-3 HPF (0-3); Specific Gravity, Urine 1.014 (1.002-1.036); Urobilinogen Normal mg/dL (Less than 2); pH, Urine 6.5 (5.0-9.0)
[2023-07-06 15:41] LABS: Clarity Cloudy (Clear)
[2023-07-06 16:03] LABS: Bacteria/HPF Rare-Few HPF (None Seen)
[2023-07-06] MEDS: cefTRIAXone\\ROCEPHIN 1 GM in Sodium Chloride 0.9% 100 ML IVPB SCH (17:19)
[2023-07-07 05:29] LABS: Hematocrit 31.8 % (36.0-47.0); Hemoglobin 10.2 g/dL (12.0-16.0); Mean Corpuscular HGB CONC 32.1 g/dL (32.0-36.0); Mean Corpuscular Hemoglobin 29.9 pg (27.0-31.0); Mean Corpuscular Volume 93.3 fl (78.0-98.0); Platelet Count 136 10x3/uL (130-400); RBC Distribution Width 13.2 % (11.5-14.5); Red Blood Cell (RBC) Count 3.41 mill/uL (4.20-5.40); White Blood Cell (WBC) Count 8.2 10x3/uL (4.8-10.8)
[2023-07-07] MEDS: Lisinopril 20 MG TAB PO SCH (08:49)
[2023-07-07] MEDS: Polyethylene Glycol 3350 17 GM Packet PO SCH (20:30)
[2023-07-07] MEDS: Cefdinir 300 MG CAP PO SCH (20:30)
[2023-07-08 04:14] LABS: Hematocrit 31.8 % (36.0-47.0); Hemoglobin 9.9 g/dL (12.0-16.0); Mean Corpuscular HGB CONC 31.1 g/dL (32.0-36.0); Mean Corpuscular Hemoglobin 29.4 pg (27.0-31.0); Mean Corpuscular Volume 94.4 fl (78.0-98.0); Mean Platelet Volume 9.8 fL (7.4-10.4); Platelet Count 134 10x3/uL (130-400); RBC Distribution Width 13.2 % (11.5-14.5); Red Blood Cell (RBC) Count 3.37 mill/uL (4.20-5.40)
[2023-07-08] MEDS: Amlodipine 5 MG TAB PO SCH (08:15)
[2023-07-08] MEDS ORDERED: fentaNYL 50 mcg/mL 1 mL Vial SLOW IVP PRN (10:34)
[2023-07-09 06:25] LABS: Hematocrit 29.1 % (36.0-47.0); Hemoglobin 9.1 g/dL (12.0-16.0); Mean Corpuscular HGB CONC 31.3 g/dL (32.0-36.0); Mean Corpuscular Hemoglobin 29.4 pg (27.0-31.0); Mean Corpuscular Volume 93.9 fl (78.0-98.0); Mean Platelet Volume 10.1 fL (7.4-10.4); Platelet Count 157 10x3/uL (130-400); RBC Distribution Width 13.2 % (11.5-14.5); White Blood Cell (WBC) Count 6.8 10x3/uL (4.8-10.8)
[2023-07-09] MEDS: Famotidine 20 MG TAB PO SCH ×2 (12:28→20:44)
[2023-07-09 13:48] VITALS: BMI 29.5
[2023-07-10] MEDS: HYDROcodone/Acetaminophen 10/325 mg Tablet PO PRN (09:46)
[2023-07-12] MEDS: HYDROcodone/Acetaminophen 10/325 mg Tablet PO PRN (01:13)
[2023-07-14] MEDS: Gabapentin 300 MG CAP PO SCH (08:23)
[2023-07-14 15:34] VITALS: BP 126/70; TEMP 98
== END 2023-07-14 17:10 | DRG 470 ==
LOC: SDC 08:41 → SJJU 09:00 → SDC 17:10 → OBSVTOIN 07-06 11:14
PROVIDERS: ADMIT Orthopaedic Surgery; ATTEND Orthopaedic Surgery
PROC: 0SRB0J9 Replacement of Left Hip Joint with Synthetic Substitute, Cemented, Open Approach (ICD-10-PCS; principal; 2023-07-05)
PROC: 3E033XZ Introduction of Vasopressor into Peripheral Vein, Percutaneous Approach (ICD-10-PCS; 2023-07-05)
DX: M16.12 Unilateral primary osteoarthritis, left hip (principal); N39.0 Urinary tract infection, site not specified; D62 Acute posthemorrhagic anemia; E78.5 Hyperlipidemia, unspecified; Z86.711 Personal history of pulmonary embolism; Z79.01 Long term (current) use of anticoagulants; Z79.899 Other long term (current) drug therapy; I48.0 Paroxysmal atrial fibrillation; E03.9 Hypothyroidism, unspecified; Z90.49 Acquired absence of other specified parts of digestive tract; Z98.41 Cataract extraction status, right eye; Z98.42 Cataract extraction status, left eye; Z98.890 Other specified postprocedural states; R35.0 Frequency of micturition; I12.9 Hypertensive chronic kidney disease with stage 1 through stage 4 chronic kidney disease, or unspecified chronic kidney disease; N18.2 Chronic kidney disease, stage 2 (mild); E21.3 Hyperparathyroidism, unspecified; L89.151 Pressure ulcer of sacral region, stage 1
CPT/HCPCS: 36415; 72170; 80053; 81001; 83735; 85027; 87086; 90471; 90694; C1776; C1889; G0008; J0171; J0665; J0696; J1170; J2001; J2371; J2550; J2704; J3010; J3370; J3490; J7050